=== PATIENT | male | born 1990 | race African-American/Black ===

== ENCOUNTER 2017-04-22 17:47 | Emergency (ER) | payer SELFPAY ==
[~2017-04-22] VITALS: Ht 157.5 cm; Wt 70.0 kg
[2017-04-22 17:50] VITALS: BP 122/68; PULSE 67; RESP 16; TEMP 98; O2SAT 100
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
--- NOTE | 2017-04-22 19:58 | RADRPT ---
EXAM DATE/TIME: 04/22/2017 19:31 [facility] COMPARISON: No previous studies available for comparison. INDICATIONS : Right ankle pain and slow incision healing, post op 6 months. MEDICAL HISTORY : None. SURGICAL HISTORY : None. ENCOUNTER: Initial ACUITY: 4 - 6 months PAIN SCORE: 7/10 LOCATION: Right lateral ankle. FINDINGS: Three-view examination is performed. No prior films as this is patient. His indwelling lateral fibu lar plate and a horizontal tract through the diametaphysis of the distal tibia with a medial metallic button. The hardware appears grossly intact. There is some lucency of the bone in the lateral mall eolus adjacent to the hardware some clips of uncertain significance stop the ankle mortise is intact. Mild soft tissue thickening medial to the metaphysis of the tibia. CONCLUSION: 1. Medial soft tissue swelling adjacent to the diametaphysis of the tibia. 2. Intact lateral fibular hardware. There is an elongated area of lucency at the interface of the in ferior lateral plate of the lateral malleolus which is of uncertain significance; this could represen t bony resorption, but there are no prior films to see whether this is a new or old finding. Chaz Osborn MD on April 22, 2017 at 19:54 Board Certified Radiologist. This report was verified electronically.
[2017-04-22 20:07] LABS: AUTOMATED NEUTROPHIL # 6.1 TH/MM3 (1.8-7.7); BASOPHIL # 0.1 TH/MM3 (0-0.2); BASOPHIL % 0.7 % (0.0-2.0); EOSINOPHIL # 0.1 TH/MM3 (0-0.4); EOSINOPHIL % 1.6 % (0.0-4.0); HEMATOCRIT 43.6 % (39.0-51.0); HEMOGLOBIN 15.2 GM/DL (13.0-17.0); LYMPH % 22.2 % (9.0-44.0); MEAN CELL VOLUME 95.8 FL (80.0-100.0); MEAN CORPUSCULAR HEMOGLOBIN 33.4 PG (27.0-34.0); MEAN CORPUSCULAR HGB CONC 34.9 % (32.0-36.0); MONO % 7.3 % (0.0-8.0); MONOCYTE # 0.6 TH/MM3 (0-0.9); NEUT % 68.2 % (16.0-70.0); PLATELET COUNT 244 TH/MM3 (150-450); RED BLOOD COUNT 4.55 MIL/MM3 (4.50-5.90); RED CELL DISTRIBUTION WIDTH 13.4 % (11.6-17.2); WHITE BLOOD COUNT 8.9 TH/MM3 (4.0-11.0)
[2017-04-22 20:34] LABS: BICARBONATE 27.9 MEQ/L (21.0-32.0); CALCIUM 9.3 MG/DL (8.5-10.1); CREATININE 1.05 MG/DL (0.60-1.30)
== END 2017-04-22 21:49 | disposition home or self-care (01) ==
LOC: NEPD 17:47
DX: L76.82 Other postprocedural complications of skin and subcutaneous tissue (principal); B95.61 Methicillin susceptible Staphylococcus aureus infection as the cause of diseases classified elsewhere; B95.1 Streptococcus, group B, as the cause of diseases classified elsewhere; B96.89 Other specified bacterial agents as the cause of diseases classified elsewhere; S82.301D Unspecified fracture of lower end of right tibia, subsequent encounter for closed fracture with routine healing; V89.2XXD Person injured in unspecified motor-vehicle accident, traffic, subsequent encounter; F17.200 Nicotine dependence, unspecified, uncomplicated
CPT/HCPCS: 73610; 80048; 85025; 86403; 87070; 87077; 87186; 87205; 99284

== ENCOUNTER 2017-05-02 17:08 | Emergency (ER) | payer SELFPAY ==
[~2017-05-02] VITALS: Ht 177.8 cm; Wt 68.0 kg
[2017-05-02 17:33] VITALS: BP 116/68; PULSE 63; RESP 16; TEMP 97.7; O2SAT 100
--- NOTE | 2017-05-02 18:40 | PD ---
HPI Chief Complaint: GI Complaint Time Seen by Provider: 18:39 Travel History International Travel<30 days: No Contact w/Intl Traveler<30days: No Traveled to known affect area: No History of Present Illness HPI 26-year-old male presents emergency department for evaluation of epigastric pain , nausea, vomiting. Patient states he has been on antibiotics for a right ankle cellulitis and they have made his stomach upset. He has been nauseous and vomiting over the last 2 days. He states today he noticed some blood in his emesis. Has never had a GI bleed before. Denies any chest pain or tightness. No difficulty breathing. No fever or chills. Patient has no other symptoms to report. [facility] Past Medical History Medical History: Denies Significant Hx Diminished Hearing: No Social History Alcohol Use: Yes (2-3 X WEEK) Tobacco Use: Yes (1/2 PPD ) Substance Use: No Allergies-Medications (Allergen,Severity, Reaction): Coded Allergies: No Known Allergies (Unverified , 05/02/17) Reported Meds & Prescriptions Reported Meds & Active Scripts Active Omeprazole 40 Mg Cap 40 Mg PO DAILY Zofran Odt (Ondansetron Odt) 4 Mg Tab 4 Mg SL Q8HR PRN Reported Cephalexin 500 Mg Cap 500 Mg PO TID Bactrim DS (Sulfamethoxazole-Trimethoprim) 800-160 Mg Tab 1 Tab PO BID Review of Systems Except as stated in HPI: all other systems reviewed are Neg Physical Exam Narrative GENERAL: Well-nourished male patient in no acute distress. SKIN: Focused skin assessment warm/dry. HEAD: Atraumatic. Normocephalic. EYES: Pupils equal and round. No scleral icterus. No injection or drainage. ENT: Mucosa pink and moist. No erythema or exudates. No uvular edema. No uvular , palatal, or tonsillar deviation. Airway patent. Nasal turbinates appear normal without nasal blood, purulent drainage or septal hematoma.. NECK: Trachea midline. No JVD. CARDIOVASCULAR: Regular rate and rhythm. No murmur appreciated. RESPIRATORY: No accessory muscle use. Clear to auscultation. Breath sounds equal bilaterally. GASTROINTESTINAL: Abdomen soft, non-tender, nondistended. Hepatic and splenic margins not palpable. MUSCULOSKELETAL: No obvious deformities. No clubbing. No cyanosis. No edema. NEUROLOGICAL: Awake and alert. No obvious cranial nerve deficits. Motor grossly within normal limits. Normal speech. PSYCHIATRIC: Appropriate mood and affect; insight and judgment normal. Data Data Last Documented VS Vital Signs Date Time Temp Pulse Resp B/P (MAP) Pulse Ox O2 Delivery O2 Flow Rate FiO2 05/02/17 19:25 20 05/02/17 17:33 97.7 63 116/68 (84) 100 Orders Orders Basic Metabolic Panel (Bmp) (05/02/17 18:52) Complete Blood Count With Diff (05/02/17 18:52) Iv Access Insert/Monitor (05/02/17 18:52) Ecg Monitoring (05/02/17 18:52) Oximetry (05/02/17 18:52) Pantoprazole Inj (Protonix Inj) (05/02/17 19:00) Sodium Chlor 0.9% 1000 Ml Inj (Ns 1000 M (05/02/17 18:52) Sodium Chloride 0.9% Flush (Ns Flush) (05/02/17 19:00) Al-Mag Hy-Si 40-40-4 Mg/Ml Liq (Mag-Al P (05/02/17 19:00) Lidocaine 2% Viscous (Xylocaine 2% Visco (05/02/17 19:00) Ed Discharge Order (05/02/17 19:47) Labs Laboratory Tests Test 05/02/17 19:10 White Blood Count 6.3 TH/MM3 Red Blood Count 4.43 MIL/MM3 Hemoglobin 14.5 GM/DL Hematocrit 41.8 % Mean Corpuscular Volume 94.2 FL Mean Corpuscular Hemoglobin 32.7 PG Mean Corpuscular Hemoglobin Concent 34.7 % Red Cell Distribution Width 13.7 % Platelet Count 211 TH/MM3 Mean Platelet Volume 7.9 FL Neutrophils (%) (Auto) 63.2 % Lymphocytes (%) (Auto) 23.7 % Monocytes (%) (Auto) 10.7 % Eosinophils (%) (Auto) 2.0 % Basophils (%) (Auto) 0.4 % Neutrophils # (Auto) 4.0 TH/MM3 Lymphocytes # (Auto) 1.5 TH/MM3 Monocytes # (Auto) 0.7 TH/MM3 Eosinophils # (Auto) 0.1 TH/MM3 Basophils # (Auto) 0.0 TH/MM3 CBC Comment DIFF FINAL Differential Comment Blood Urea Nitrogen 7 MG/DL Creatinine 1.16 MG/DL Random Glucose 74 MG/DL Calcium Level 8.9 MG/DL Sodium Level 139 MEQ/L Potassium Level 3.9 MEQ/L Chloride Level 104 MEQ/L Carbon Dioxide Level 26.7 MEQ/L Anion Gap 8 MEQ/L Estimat Glomerular Filtration Rate 92 ML/MIN MDM Medical Decision Making Medical Screen Exam Complete: Yes Emergency Medical Condition: Yes Medical Record Reviewed: Yes Differential Diagnosis Gastritis versus esophagitis versus pharyngitis versus less likely GI bleed Narrative Course 26-year-old male presents emergency department for evaluation nausea and vomiting with blood in his emesis. Patient appears well without distress. Vital signs are stable. Lab work is unremarkable. This is likely gastritis secondary to medication. I have encouraged him to make sure he has more food on his stomach prior to taking medications. I have advised him to avoid acidic and abrasive feeds.. I will give him a PPI and encouraged follow-up with the GI specialist. He agrees to return immediately with any acute worsening symptoms. 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 Primary Care Physician Patient Instructions: Diet for Stomach Ulcers and Gastritis (ED), General Instructions Departure Forms: Tests/Procedures, Work Release Enter return to work date: May 04, 2017 Additional Instructions: Clear liquid diet, advance as tolerated Avoid abrasive and acidic foods See gastroenterology evaluation if symptoms persist Return immediately with any acute worsening symptoms Med/Other Pt SpecificInfo: Prescription(s) given Scripts Omeprazole (Omeprazole) 40 Mg Cap 40 MG PO DAILY, #14 CAP 0 Refills Prov: Kellie Gao 05/02/17 Ondansetron Odt (Zofran Odt) 4 Mg Tab 4 MG SL Q8HR Y for Nausea/Vomiting, #15 TAB 0 Refills Prov: Kellie Gao 05/02/17 Disposition: 01 DISCHARGE HOME Condition: Stable Kellie Gao May 02, 2017 18:40
[2017-05-02] MEDS ORDERED: BACT800T5 PO (18:48)
[2017-05-02] MEDS ORDERED: CEPH500C PO (18:48)
[2017-05-02] MEDS ORDERED: SODIUM CHLOR 0.9% 1000 ML INJ 1,000 ML IV SCH (18:52)
[2017-05-02] MEDS ORDERED: PANTOPRAZOLE SODIUM 40 MG VIAL IVP ONE (19:00)
[2017-05-02] MEDS ORDERED: ALUMINUM/MAGNESIUM/SIMETH 30 ML CUP PO ONE (19:00)
[2017-05-02] MEDS ORDERED: SODIUM CHLORIDE 0.9% FLUSH 10 ML FLUSH IV FLUSH PRN (19:00)
[2017-05-02] MEDS ORDERED: LIDOCAINE VISCOUS 2% SOLN 15 ML UDC PO ONE (19:00)
[2017-05-02 19:25] VITALS: RESP 20
[2017-05-02 19:30] LABS: BASOPHIL % 0.4 % (0.0-2.0); EOSINOPHIL # 0.1 TH/MM3 (0-0.4); HEMATOCRIT 41.8 % (39.0-51.0); HEMOGLOBIN 14.5 GM/DL (13.0-17.0); LYMPH % 23.7 % (9.0-44.0); LYMPHOCYTE # 1.5 TH/MM3 (1.0-4.8); MEAN CELL VOLUME 94.2 FL (80.0-100.0); MEAN CORPUSCULAR HEMOGLOBIN 32.7 PG (27.0-34.0); MEAN CORPUSCULAR HGB CONC 34.7 % (32.0-36.0); MEAN PLATELET VOLUME 7.9 FL (7.0-11.0); MONO % 10.7 % (0.0-8.0); MONOCYTE # 0.7 TH/MM3 (0-0.9); NEUT % 63.2 % (16.0-70.0); PLATELET COUNT 211 TH/MM3 (150-450); RED BLOOD COUNT 4.43 MIL/MM3 (4.50-5.90); RED CELL DISTRIBUTION WIDTH 13.7 % (11.6-17.2); WHITE BLOOD COUNT 6.3 TH/MM3 (4.0-11.0)
[2017-05-02 19:45] LABS: BICARBONATE 26.7 MEQ/L (21.0-32.0); CALCIUM 8.9 MG/DL (8.5-10.1); CREATININE 1.16 MG/DL (0.60-1.30)
[2017-05-02] MEDS ORDERED: OMEP40CA2 PO (19:50)
[2017-05-02] MEDS ORDERED: ZOFR4TAB3 SL (19:50)
== END 2017-05-02 20:16 | disposition home or self-care (01) ==
LOC: NEPE 17:08
DX: K29.00 Acute gastritis without bleeding (principal); F17.200 Nicotine dependence, unspecified, uncomplicated; L03.115 Cellulitis of right lower limb
CPT/HCPCS: 80048; 85025; 96374; 99284; C9113; J7030